=== PATIENT | female | born 1975 | race Caucasian/White ===

== ENCOUNTER 2021-08-05 12:28 | Outpatient (CLI) | payer BC | END 2021-08-05 12:29 | disposition home or self-care (01) | LOC: CSHMRI 12:28 | PROVIDERS: ATTEND Psychiatry & Neurology Neurology | DX: G43.109 Migraine with aura, not intractable, without status migrainosus (principal) | CPT/HCPCS: 70553 ==

== ENCOUNTER 2024-06-04 06:00 | Day surgery (SDC) | payer BC ==
[2024-05-31 10:26] VITALS: BMI 24.0
[2024-05-31 10:47] LABS: Hematocrit 44.5 % (34.9-44.5); Hemoglobin 15.1 g/dL (12.0-15.5); Mean Corpuscular HGB CONC 33.9 g/dL (32.0-36.0); Mean Corpuscular Hemoglobin 31.7 pg (27.0-33.0); Mean Corpuscular Volume 93.3 fL (81.6-98.3); Mean Platelet Volume 8.9 fL (7.4-10.4); Platelet Count 266 10x3/uL (150-450); RBC Distribution Width 12.7 % (11.5-14.5); Red Blood Cell (RBC) Count 4.77 10x6/uL (3.90-5.03); White Blood Cell (WBC) Count 5.3 10x3/uL (3.5-10.5)
[2024-05-31 11:39] LABS: BHCG - Serum Negative (NEGATIVE); Pregs Control Background? CLEAR/WHITE (CLR/WHITE); Pregs Control Bar Appear? YES (CONTROL BAR)
[2024-06-04] MEDS ORDERED: Gabapentin 300 MG CAP ONE (06:32)
[2024-06-04] MEDS ORDERED: CeleCOXIB 100 MG CAP ONE (06:32)
[2024-06-04] MEDS ORDERED: Famotidine/PF 20 mg/2ml Vial ONE (06:33)
[2024-06-04] MEDS ORDERED: Bupivacaine HCl 0.5%/Epinephrine 1:200,000/PF 30 ml Vial ONE (06:58)
[2024-06-04] MEDS ORDERED: Ondansetron PF 4 MG/2 ML Vial ONE ×2 (07:09→10:28)
[2024-06-04] MEDS ORDERED: Dexamethasone 20 MG/5 ML VIAL ONE (07:09)
[2024-06-04] MEDS ORDERED: fentaNYL 50 mcg/mL 1 mL Vial ONE ×2 (07:09→10:03)
[2024-06-04] MEDS ORDERED: SUGAMMADEX SODIUM 200 MG/2 ML VIAL ONE (07:09)
[2024-06-04] MEDS ORDERED: PROPOFOL 0 ML ONE (07:09)
[2024-06-04] MEDS ORDERED: Lidocaine 1% PF 5 ML VIAL ONE (07:09)
[2024-06-04] MEDS ORDERED: Rocuronium Bromide 10 MG/ML (10ML VIAL) ONE (07:09)
[2024-06-04] MEDS ORDERED: HYDROmorphone 0.5 MG/0.5 ML SYRINGE ONE (07:11)
[2024-06-04] MEDS ORDERED: CEFAZOLIN 2 GM VIAL ONE (07:23)
[2024-06-04] MEDS ORDERED: Midazolam HCl 2 mg/2 ml Vial ONE (07:24)
[2024-06-04] MEDS ORDERED: PHENYLEPHRINE-NS 100 MCG/ML 10 ML SYRINGE ONE (08:56)
[2024-06-04] MEDS ORDERED: PROPOFOL 20 ML ONE (09:31)
[2024-06-04] MEDS ORDERED: Meperidine HCl/PF 25 MG (1 mL) VIAL ONE (09:39)
== END 2024-06-04 12:06 | disposition home or self-care (01) ==
LOC: CSHSDC 06:00
PROVIDERS: ATTEND Obstetrics & Gynecology
PROC: 0UT74ZZ Resection of Bilateral Fallopian Tubes, Percutaneous Endoscopic Approach (ICD-10-PCS; principal; 2024-06-04)
PROC: 0UT94ZZ Resection of Uterus, Percutaneous Endoscopic Approach (ICD-10-PCS; principal; 2024-06-04)
PROC: 0UT04ZZ Resection of Right Ovary, Percutaneous Endoscopic Approach (ICD-10-PCS; principal; 2024-06-04)
DX: N72 Inflammatory disease of cervix uteri (principal); N87.9 Dysplasia of cervix uteri, unspecified; N88.8 Other specified noninflammatory disorders of cervix uteri; N83.11 Corpus luteum cyst of right ovary; N99.85 Post endometrial ablation syndrome; G89.18 Other acute postprocedural pain; G43.909 Migraine, unspecified, not intractable, without status migrainosus; Z79.899 Other long term (current) drug therapy
CPT/HCPCS: 84703; 85027; 86850; 86900; 86901; 88307; C9250; J1100; J1170; J2175; J2250; J2405; J2704; J3010; J3490